=== PATIENT | male | born 1965 | race Caucasian/White ===

== ENCOUNTER 2017-01-24 21:31 | Emergency (ER) | payer OTHER ==
[2017-01-24] MEDS ORDERED: KETOROLAC 0.45% OPHTH 1 DROP/EACH DROPERETTE ONE (22:45)
[2017-01-24] MEDS ORDERED: GENTAMICIN 0.3% OPHTH OINTMENT 1 APPLIC APP ONE (22:45)
--- NOTE | 2017-01-24 22:45 | ER NURSING DOCUMENTATION ---
Nurse's Notes [facility] Name:Tez Orr Age:52 yrs Sex:Male :1965 Arrival Date:01/24/2017 Time:21:31 Bed2 Private MD:No PCP, Identified Diagnosis:Conjunctivitis Presentation: 01/24 21:34 Acuity: ANURAG 3 rh 21:50 Presenting complaint: Patient states: eye infection - started in the right eye and now rh is in the left eye. Pt has antibiotic eye drops as well. Transition of care: [place]. 21:50 Method Of Arrival: Private Vehicle rh Triage Assessment: 22:01 General: Appears in no apparent distress, Behavior is cooperative. Pain: Complains of rh pain in right eye and left eye. EENT: Eyes with exudate noted from inner aspect of conjuctiva of right eye and inner aspect of conjunctiva of left eye. Neuro: Level of Consciousness is awake, alert, obeys commands. Derm: Skin is intact, is healthy with good turgor, Skin is pink, warm & dry. Historical: - Allergies: No known drug Allergies; - Home Meds: 1. None - PMHx: None; - PSHx: None; - Tetanus: < 10 years. - Ebola Screening: : Patient negative for fever greater than or equal to 101.5 degrees Fahrenheit, and additional compatible Ebola Virus Disease symptoms. - Immunization history: Flu Vaccine < 1 year. - Social history: Smoking status: Patient states was never smoker of tobacco. Screenin:59 Infectious Disease Risk None. Abuse screen: Denies threats or abuse. Denies injuries rh from another. Nutritional screening: No deficits noted. Assessment: 21:59 See Triage Assessment done by same RN. rh Vital Signs: 21:58 BP 145 / 92; Pulse 79; Resp 17; Temp 98.2(O); Pulse Ox 96% on R/A; Weight 129.27 kg; rh Height 6 ft. 0 in. (182.88 cm); Pain 7/10; 21:58 Body Mass Index 38.65 (129.27 kg, 182.88 cm) rh ED Course: 21:33 Patient arrived in ED. dp 21:33 No PCP, Identified is Private Physician. dp 21:34 Triage completed. rh 21:43 Daren Keane MD is Attending Physician. mi 21:50 Yamel Phillips is Primary Nurse. 21:59 Notified ED Physician of patient's arrival and chief complaint. Dr. Keane notified. rh 22:03 Valuables Remains with patient Patient has correct armband on for positive rh identification. Bed in low position. Call light in reach. Side rails up X 1. 22:39 José Miguel Marroquin MD is Referral Physician. mi Administered Medications: 22:41 Drug: Gentamicin Ointment 0.3 % 0.5 inches; Route: Ophthalmic; Site: both eyes; rh 22:42 Follow up: Response: No adverse reaction rh 22:42 Drug: ketorolac (PF) Dropperette 0.45 % 2 drops; Route: Ophthalmic; Site: both eyes; rh 22:42 Follow up: Response: No adverse reaction Outcome: 22:40 Discharge ordered by . mi 22:44 Discharged to home ambulatory, with significant other. 22:44 Condition: improved 22:44 Discharge Assessment: Patient awake, alert and oriented x 3. No cognitive and/or functional deficits noted. Patient verbalized understanding of disposition instructions. 22:44 Discharge instructions given to patient, significant other, Instructed on discharge instructions, follow up and referral plans. Demonstrated understanding of instructions. 22:44 Patient left the ED. Signatures: Daren Keane MD MD mi Yamel Phillips Katiana Avelar
--- NOTE | 2017-01-24 22:45 | ER PHYSICIAN DOCUMENTATION ---
Physician Documentation [facility] Name:Tez Orr Age:52 yrs Sex:Male :1965 Arrival Date:01/24/2017 Time:21:31 Bed2 Private MD:No PCP, Identified ED EmeraldcarlDaren Disposition: 01/24/17 22:40 Discharged to Home/Self Care. Impression: Conjunctivitis. - Condition is Good. - Discharge Instructions: CONJUNCTIVITIS, Allergic, CONJUNCTIVITIS, NONSPECIFIC (Child). - Medical Reconciliation form form. - Follow up: José Miguel Marroquin MD; When: 2 - 3 days; Reason: Continuance of care. - Problem is an ongoing problem. - Symptoms have improved. HPI: 01/24 22:35 This 52 yrs old Male presents to ER via Private Vehicle with complaints of sc Eye Problem - BILATERAL. 22:35 The patient is experiencing burning, matting or discharge, redness. Onset: The sc symptom(s)/episode began/occurred 3 week(s) ago. Duration: the symptoms are continuous. Aggravated by opening eye. Associated signs and symptoms: Pertinent positives: None. Patient has had LASIK surgery. Historical: - Allergies: No known drug Allergies; - Home Meds: 1. None - PMHx: None; - PSHx: None; - Tetanus: < 10 years. - Ebola Screening: : Patient negative for fever greater than or equal to 101.5 degrees Fahrenheit, and additional compatible Ebola Virus Disease symptoms. - Immunization history: Flu Vaccine < 1 year. - Social history: Smoking status: Patient states was never smoker of tobacco. ROS: 22:36 Constitutional: Negative for fever, chills, and weight loss. sc ENT: Negative for injury, pain, and discharge. Neck: Negative for injury, pain, and swelling. Cardiovascular: Negative for chest pain, palpitations, and edema. Respiratory: Negative for shortness of breath, cough, wheezing, and pleuritic chest pain. Skin: Negative for injury, rash, and discoloration. 22:36 Neuro: Negative for headache, weakness, numbness, tingling, and seizure. sc 22:36 Eyes: Positive for discharge, redness. Exam: 22:36 Visual Acuity: I have reviewed the nursing documentation. Visual acuity is within or normal limits. Constitutional: This is a well developed, well nourished patient who is awake, alert, and in no acute distress. Head/Face: Normocephalic, atraumatic. ENT: Nares patent. No nasal discharge, no septal abnormalities noted. Tympanic membranes are normal and external auditory canals are clear. Oropharynx with no redness, swelling, or masses, exudates, or evidence of obstruction, uvula midline. Mucous membranes moist. Neck: Trachea midline, no thyromegaly or masses palpated, and no cervical lymphadenopathy. Supple, full range of motion without nuchal rigidity, or vertebral point tenderness. No meningismus. 22:36 Chest/axilla: Normal chest wall appearance and motion. Nontender with no deformity. No lesions are appreciated. 22:36 Eyes: Periorbital structures: no acute changes, Pupils: equal, round, and reactive to light and accomodation, Extraocular movements: intact throughout, Conjunctiva: injected, Corneas: are normal, Sclera: no appreciated abnormality. Vital Signs: 21:58 BP 145 / 92; Pulse 79; Resp 17; Temp 98.2(O); Pulse Ox 96% on R/A; Weight 129.27 kg; rh Height 6 ft. 0 in. (182.88 cm); Pain 7/10; 21:58 Body Mass Index 38.65 (129.27 kg, 182.88 cm) rh MDM: 21:43 Patient medically screened. sc 22:37 Differential diagnosis: Acute iritis of Ultraviolet keratitis in. Data reviewed: vital sc signs, nurses notes, and as a result, I will discharge patient. Counseling: I had a detailed discussion with the patient and/or guardian regarding: the historical points, exam findings, and any diagnostic results supporting the discharge/admit diagnosis, the need for outpatient follow up, to return to the emergency department if symptoms worsen or persist or if there are any questions or concerns that arise at home. Dispensed Medications: 22:41 Drug: Gentamicin Ointment 0.3 % 0.5 inches; Route: Ophthalmic; Site: both eyes; rh 22:42 Follow up: Response: No adverse reaction rh 22:42 Drug: ketorolac (PF) Dropperette 0.45 % 2 drops; Route: Ophthalmic; Site: both eyes; rh 22:42 Follow up: Response: No adverse reaction rh Signatures: Daren Keane MD MD sc Hofsess, Rachel rh
== END 2017-01-24 22:45 | disposition home or self-care (01) ==
LOC: ER 21:31 → EDBD 21:31 → ER 22:45
DX: H10.023 Other mucopurulent conjunctivitis, bilateral (principal)
CPT/HCPCS: 99283